=== PATIENT | female | born 1940 | race Caucasian/White ===

== ENCOUNTER 2018-05-31 10:14 | Inpatient (IN) | payer OTHER, SELFPAY ==
[2018-05-31] VITALS (7 sets, daily range): BP systolic 118–140; BP diastolic 65–68; PULSE 79–113; RESP 16–27; TEMP 36.6–38.8; O2SAT 91–97; BMI 20.9
[2018-05-31] MEDS: SODIUM CHLORIDE 0.9% 1,000 ML 1000 ML IV (10:00)
--- NOTE | 2018-05-31 10:23 | DI.RAD.S_ITS ---
PROCEDURE: XR CHEST 1V INDICATIONS: suspected sepsis TECHNIQUE: One view of the chest was acquired. COMPARISON: None. FINDINGS: Surgical changes and devices: None. Lungs and pleura: There is blunting of left costophrenic angle suggestive of trace pleural effusion/thickening. Minimal left basilar atelectasis is also seen. No focal infiltrate or gross pneumothorax. Chronic emphysematous changes are seen. Mediastinum: Mediastinal contours appear normal. Heart size is enlarged. Bones and chest wall: No suspicious bony lesions. Overlying soft tissues appear unremarkable. IMPRESSION: Minimal left pleural effusion versus thickening. Left basilar atelectasis. No focal infiltrate or gross pneumothorax. Dictated by: Pascual Lay M.D. on 05/31/2018 at 10:51 Approved by: Pascual Lay M.D. on 05/31/2018 at 10:54
--- NOTE | 2018-05-31 10:30 | ED_ITS ---
HPI - Fever General Chief Complaint: Fever Stated Complaint: Fever, not eating Time Seen by Provider: 05/31/18 10:19 Source: family Mode of arrival: EMS Limitations: altered mental status History of Present Illness HPI Narrative: patient is a 77-year-old female with a history of dementia. She does come with a PLOST indicates that she is a DNR and antibiotics under limited circumstances. She is with her sister and also her dental laboratory technician apprentice. The patient does live had a care facility. The dental laboratory technician apprentice states that over the past several days the patient has become more altered. She did state that she had a fever at the end of last week. They also noticed that she was cheeking her food. They noticed over the past day or so that she has had a swelling in the right side of her neck. Has not been eating all that well. Both the dental laboratory technician apprentice and the sister think that she is at baseline mental status. Related Data Home Medications Medication Instructions Recorded Confirmed atorvastatin 10 mg tablet 10 mg PO BEDTIME 01/20/18 05/31/18 escitalopram 10 mg tablet 10 mg PO DAILY 01/20/18 05/31/18 quetiapine 25 mg tablet 6.25 - 12.5 mg PO BID PRN 01/20/18 05/31/18 triamcinolone acetonide 1 applic TOPICAL BID 05/31/18 05/31/18 Allergies Allergy/AdvReac Type Severity Reaction Status Date / Time erythromycin base Allergy hives Verified 01/20/18 10:56 Penicillins Allergy Hives Verified 01/20/18 10:56 Sulfa (Sulfonamide Allergy hives Verified 01/20/18 10:56 Antibiotics) Review of Systems Review of Systems Review of systems that was provided was from dental laboratory technician apprentice. unobtainable due to mental status Constitutional Reports fever(s) Gastrointestinal Gastrointestinal: Denies change in bowel habits and Denies vomiting Integumentary/Breasts Denies lesions and Denies rash Neurologic Comments: At baseline mental status [facility] Medical History Alzheimer's dementia (Acute) Surgical History No pertinent past surgical history (Acute) S/P appendectomy (Resolved) S/P cholecystectomy (Resolved) S/P ectopic (Resolved) S/P total hysterectomy (Resolved) Social History Smoking Status: Never smoker Exam Initial Vital Signs Initial Vital Signs: Vital Signs Temperature 97.8 F 05/31/18 10:24 Pulse Rate 113 H 05/31/18 10:24 Respiratory Rate 27 H 05/31/18 10:24 Blood Pressure 132/68 05/31/18 10:24 Pulse Oximetry 95 05/31/18 10:24 Const General: ill appearing Nutritional Appearance: cachectic Orientation: not alert and not oriented x3 HENMT Head: normal to inspection and normocephalic Mouth: No moist mucous membranes and malodorous breath Neck Other: patient with a large right-sided submandibular anterior cervical fullness. Not freely movable. No overlying skin changes. Resp Effort & Inspection: normal respiratory effort Auscultation: clear to auscultation bilaterally Cardio Rate: tachycardic Rhythm: regular rhythm GI Inspection: non-distended Palpation: soft Skin Lesions: no lesions Rashes: no rashes Neuro Other: Not responsive to commands. Did move all 4 extremities however not to command. Extrem General: normal to inspection and capillary refill normal Psych Appearance: disheveled Course Orders Ordered: ED Orders 05/31/18 10:23 XR chest 1V Stat 05/31/18 10:25 Complete Blood Count AUTO DIFF Stat Comprehensive Metabolic Panel Stat Lactate (Lactic Acid) Stat Lipase Stat Partial Thromboplastin Time Stat Procalcitonin Stat Prothrombin Time INR Stat 05/31/18 10:30 Blood Culture Stat 05/31/18 11:58 CT soft tissue neck w con Stat 05/31/18 13:15 Urinalysis and Microscopic Stat 05/31/18 13:46 Consult to Hospice Referral Routine 05/31/18 14:23 Education, smoking cessation ONGOING 05/31/18 14:49 MRSA PCR Stat Lorazepam (Ativan) 0.5 mg IV Q2HR PRN PRN Reason: Anxiety Discontinued Medications Acetaminophen (Tylenol) 650 mg [place] NOW ONE Stop: 05/31/18 10:55 Last Admin: 05/31/18 10:58 Dose: 650 mg Sodium Chloride (Normal Saline 0.9%) 1,000 mls @ 1,000 mls/hr IV BOLUS ONE Stop: 05/31/18 11:22 Last Infusion: 05/31/18 11:00 Dose: 0 mls/hr Admin: 05/31/18 10:00 Dose: 1,000 mls/hr Sodium Chloride (Normal Saline 0.9%) 2,100 mls @ 700 mls/hr 30 ml/kg infuse over 3 hr (2100 ml) IV CONT WILLIAM Last Infusion: 05/31/18 13:42 Dose: 0 mls/hr Admin: 05/31/18 10:59 Dose: 700 mls/hr Vancomycin HCl/Dextrose (Vancomycin) 1,000 mg in 200 mls @ 200 mls/hr IV NOW ONE Stop: 05/31/18 11:53 Last Infusion: 05/31/18 13:10 Dose: 0 mls/hr Admin: 05/31/18 12:07 Dose: 200 mls/hr Ceftriaxone Sodium/Dextrose (Rocephin) 1 gm in 50 mls @ 100 mls/hr IV NOW ONE Stop: 05/31/18 11:26 Last Infusion: 05/31/18 11:32 Dose: 0 mls/hr Admin: 05/31/18 11:05 Dose: 100 mls/hr Vital Signs - 8 hr 05/31/18 10:24 05/31/18 10:58 05/31/18 11:26 Temperature 97.8 F 102 F H 100.1 F H Pulse Rate 113 H Respiratory Rate 27 H Blood Pressure 132/68 Pulse Oximetry 95 05/31/18 11:32 05/31/18 14:09 Temperature 100 F H 98.4 F Pulse Rate 84 Respiratory Rate 16 Blood Pressure 140/65 Pulse Oximetry 91 MDM - Fever Lab Data Attestation: I reviewed the patient's lab results. Result diagrams: 05/31/18 10:25 05/31/18 10:25 Lab Results 05/31/18 05/31/18 05/31/18 Range/Units 10:25 10:25 10:25 WBC 19.7 H (4.5-11.0) X10^3/uL RBC 5.25 H (4.0-5.2) X10^6/uL Hgb 14.4 (12.0-16.0) g/dL Hct 43.9 (36-46) % MCV 83.6 (80-100) fL MCH 27.4 (26-34) PG MCHC 32.8 (30-36) % RDW 14.6 (11.6-14.8) % Plt Count 236 (150-400) X10^3/uL Neut % (Auto) 83.7 H (50-75) % Lymph % (Auto) 7.0 L (25-40) % [place] % (Auto) 9.0 (3-14) % Eos % (Auto) 0.0 L (2-4) % Baso % (Auto) 0.3 (0-2) % Neut # (Auto) 10485 H (3024-1841) /uL PT 13.3 H (10.1-12.7) SECONDS INR 1.2 (0.9-1.3) APTT 23 L (26.4-36.2) SECONDS Sodium (137-145) mmol/L Potassium (3.4-5.1) mmol/L Chloride (98-107) mmol/L Carbon Dioxide (22-32) mmol/L BUN (7-17) mg/dL Creatinine (0.52-1.04) mg/dL Estimated GFR (>60) mL/min BUN/Creatinine Ratio (6-22) Glucose (80-110) mg/dL Lactate (0.7-2.1) mmol/L Calcium (8.4-10.2) mg/dL Total Bilirubin (0.2-1.3) mg/dL AST (14-36) IU/L ALT (9-52) IU/L Alkaline Phosphatase (38-126) U/L Total Protein (6.3-8.2) g/dL Albumin (3.5-5.0) g/dL Globulin (1.7-4.1) g/dL Albumin/Globulin Ratio (1.0-2.8) Lipase (23-300) U/L Procalcitonin 1.73 H (<0.5) ng/mL Urine Color Urine Appearance Urine pH Ur Specific [place] Urine Protein Urine Glucose (UA) Urine Ketones Urine Occult Blood Urine Nitrate Urine Bilirubin Urine Urobilinogen Ur Leukocyte Esterase Urine RBC (0-5/HPF) Urine WBC (0-5/HPF) Ur Squamous Epith Cells Triple Phos Crystals Amorphous Sediment Urine Bacteria (None) Ur Culture Indicated? Micro UA Comment 05/31/18 05/31/18 05/31/18 Range/Units 10:25 10:25 13:15 WBC (4.5-11.0) X10^3/uL RBC (4.0-5.2) X10^6/uL Hgb (12.0-16.0) g/dL Hct (36-46) % MCV (80-100) fL MCH (26-34) PG MCHC (30-36) % RDW (11.6-14.8) % Plt Count (150-400) X10^3/uL Neut % (Auto) (50-75) % Lymph % (Auto) (25-40) % [place] % (Auto) (3-14) % Eos % (Auto) (2-4) % Baso % (Auto) (0-2) % Neut # (Auto) (9671-5425) /uL PT (10.1-12.7) SECONDS INR (0.9-1.3) APTT (26.4-36.2) SECONDS Sodium 160 H* (137-145) mmol/L Potassium 3.9 (3.4-5.1) mmol/L Chloride 123 H* (98-107) mmol/L Carbon Dioxide 24 (22-32) mmol/L BUN 36 H (7-17) mg/dL Creatinine 1.10 H (0.52-1.04) mg/dL Estimated GFR 47.9 L (>60) mL/min BUN/Creatinine Ratio 32.7 H (6-22) Glucose 138 H (80-110) mg/dL Lactate 1.2 (0.7-2.1) mmol/L Calcium 7.9 L (8.4-10.2) mg/dL Total Bilirubin 0.8 (0.2-1.3) mg/dL AST 65 H (14-36) IU/L ALT 33 (9-52) IU/L Alkaline Phosphatase 100 (38-126) U/L Total Protein 5.8 L (6.3-8.2) g/dL Albumin 2.9 L (3.5-5.0) g/dL Globulin 2.9 (1.7-4.1) g/dL Albumin/Globulin Ratio 1.0 (1.0-2.8) Lipase 234 (23-300) U/L Procalcitonin (<0.5) ng/mL Urine Color Brown Urine Appearance Turbid Urine pH QNS Ur Specific [place] QNS Urine Protein QNS Urine Glucose (UA) QNS Urine Ketones QNS Urine Occult Blood QNS Urine Nitrate QNS Urine Bilirubin QNS Urine Urobilinogen QNS Ur Leukocyte Esterase QNS Urine RBC None seen (0-5/HPF) Urine WBC 5-10/hpf H (0-5/HPF) Ur Squamous Epith Cells >30 /hpf H Triple Phos Crystals Moderate Amorphous Sediment 3+ Urine Bacteria None seen (None) Ur Culture Indicated? Cult not indicated Micro UA Comment Not Reportable Imaging Data Chest x-ray: Radiologist's impression: [address] [address] XRay Report Signed Patient: Kayley Keene#: [id number] : 8Acct:[id number] Age/Sex: 77 / FDate of Service: 05/31/18 Loc: ED Accession Number: [id number] Procedure: XR chest 1V Ordering Provider: Maurizio Hi D.O. PROCEDURE: XR CHEST 1V INDICATIONS: suspected sepsis TECHNIQUE: One view of the chest was acquired. COMPARISON: None. FINDINGS: Surgical changes and devices: None. Lungs and pleura: There is blunting of left costophrenic angle suggestive of trace pleural effusion/thickening. Minimal left basilar atelectasis is also seen. No focal infiltrate or gross pneumothorax. Chronic emphysematous changes are seen. Mediastinum: Mediastinal contours appear normal. Heart size is enlarged. Bones and chest wall: No suspicious bony lesions. Overlying soft tissues appear unremarkable. IMPRESSION: Minimal left pleural effusion versus thickening. Left basilar atelectasis. No focal infiltrate or gross pneumothorax. Dictated by: Pascual Lay M.D. on 05/31/2018 at 10:51 Approved by: Pascual Lay M.D. on 05/31/2018 at 10:54 CT neck: Radiologist's impression: ROCEDURE: CT SOFT TISSUE NECK W CON INDICATIONS: Right sided swelling and sepsis TECHNIQUE: After the administration of intravenous contrast, 3.0 mm axial sections acquired from the sella to the aortic arch. Additional oblique axial 3.0 mm sections acquired through the pharynx. 3 mm thick coronal and sagittal reformats were generated. For radiation dose reduction, the following was used: automated exposure control. COMPARISON: [facility], CLAUDINE, XR CHEST 1V, 05/31/2018, 10:36. FINDINGS: Image quality: Excellent. Lymph nodes: No enlarged lymph nodes seen throughout the neck. Vessels: Visualized vasculature appears patent. Neck spaces: The oropharynx, nasopharynx, and pharynx demonstrate no mucosal lesions. The vocal cords, false vocal cords, pyriform sinuses, epiglottis, vallecula, and tongue base all appear normal. Glands: There is abnormal swelling and hyperenhancement of the right submandibular gland. There is surrounding inflammatory change, with subcutaneous fat stranding and thickening of the right platysma muscle. The left submandibular gland demonstrates no significant abnormality. The parotid glands are largely fatty replaced, yet appear symmetric. Thyroid gland demonstrates no significant CT abnormality. Miscellaneous: Visualized brain and orbits appear normal. Lung apices appear clear. Superficial soft tissues appear normal. Bones: No suspicious bony lesions. Visualized sinuses and mastoids appear unremarkable. Mild bony degenerative changes are seen. IMPRESSION: Right neck inflammatory change is seen, which is centered at the right submandibular gland. Please correlate with potential causes of inflammation this salivary gland. Dictated by: Brigido Giraldo M.D. on 05/31/2018 at 11:08 Approved by: Brigido Giraldo M.D. on 05/31/2018 at 11:11 [facility] Narrative Medical decision making narrative: patient is a DNR however does accept antibiotics. Given her fever, elevated white blood cell count, and clinical condition I do have concern for a sepsis picture. She was given vancomycin Rocephin here in the emergency department. She was given 30 cc/kilogram of fluids. Clinically she was very dehydrated this does fit the hypernatremia. No drainable abscess seen in the right side of the neck. I discussed the case with Dr. Watkins who is on-call for the patient's primary care doctor who accepts the patient for admission. I discussed the admission with the dental laboratory technician apprentice and the sister who at bedside. They both expressed understanding and agreement. Discharge Plan Departure Patient Disposition: Admitted As Inpatient Clinical Impression: Fever of unknown origin, Sepsis Discharge Date/Time: 05/31/18 13:47 Interventions: ED Discharge Assessment Last Done: 05/31/18 13:46 Admit Date/Time: 05/31/18 13:21 Admit Provider: Isai Watkins
[2018-05-31 10:39] LABS: Add Manual Diff / Slide Review NO; Basophils Percent Auto 0.3 % (0-2); Hematocrit 43.9 % (36-46); Hemoglobin 14.4 g/dL (12.0-16.0); Mean Corpuscular HGB Conc 32.8 % (30-36); Mean Corpuscular Hemoglobin 27.4 PG (26-34); Mean Corpuscular Volume 83.6 fL (80-100); Neutrophils Absolute Auto 16500 /uL (3000-5900); Neutrophils Percent Auto 83.7 % (50-75); Platelet Count 236 X10^3/uL (150-400); Red Blood Cell Count 5.25 X10^6/uL (4.0-5.2); Red Cell Distribution Width 14.6 % (11.6-14.8); White Blood Cell Count 19.7 X10^3/uL (4.5-11.0)
[2018-05-31 10:46] LABS: INR 1.2 (0.9-1.3); Prothrombin Time 13.3 SECONDS (10.1-12.7)
[2018-05-31 10:49] LABS: PTT Partial Thromboplastin Tim 23 SECONDS (26.4-36.2)
[2018-05-31 10:51] LABS: Alanine Aminotransferase 33 IU/L (9-52); Albumin 2.9 g/dL (3.5-5.0); Alkaline Phosphatase 100 U/L (38-126); Aspartate Aminotransferase 65 IU/L (14-36); BUN Creatinine Ratio 32.7 (6-22); Bilirubin Total 0.8 mg/dL (0.2-1.3); Blood Urea Nitrogen 36 mg/dL (7-17); Calcium 7.9 mg/dL (8.4-10.2); Carbon Dioxide 24 mmol/L (22-32); Estimated Glomerular Filt Rate 47.9 mL/min (>60); Globulin 2.9 g/dL (1.7-4.1); Glucose 138 mg/dL (80-110); HEMOLYSIS < 15 (0-50); Lipase 234 U/L (23-300); Potassium 3.9 mmol/L (3.4-5.1); Total Protein 5.8 g/dL (6.3-8.2)
[2018-05-31 10:52] LABS: Lactate (Lactic Acid) 1.2 mmol/L (0.7-2.1)
[2018-05-31] MEDS: ACETAMINOPHEN 650 MG SUPP PR (10:58)
[2018-05-31] MEDS: SODIUM CHLORIDE 0.9% 2,100 ML 700 ML IV (10:59)
[2018-05-31 11:00] LABS: Sodium 160 mmol/L (137-145)
[2018-05-31 11:01] LABS: Chloride 123 mmol/L (98-107)
[2018-05-31] MEDS: CEFTRIAXONE 1 GM/50 ML FROZ.PIGGY IV (11:05)
[2018-05-31 11:07] LABS: Procalcitonin 1.73 ng/mL (<0.5)
--- NOTE | 2018-05-31 11:58 | DI.CT.S_ITS ---
PROCEDURE: CT SOFT TISSUE NECK W CON INDICATIONS: Right sided swelling and sepsis TECHNIQUE: After the administration of intravenous contrast, 3.0 mm axial sections acquired from the sella to the aortic arch. Additional oblique axial 3.0 mm sections acquired through the pharynx. 3 mm thick coronal and sagittal reformats were generated. For radiation dose reduction, the following was used: automated exposure control. COMPARISON: [facility], CR, XR CHEST 1V, 05/31/2018, 10:36. FINDINGS: Image quality: Excellent. Lymph nodes: No enlarged lymph nodes seen throughout the neck. Vessels: Visualized vasculature appears patent. Neck spaces: The oropharynx, nasopharynx, and pharynx demonstrate no mucosal lesions. The vocal cords, false vocal cords, pyriform sinuses, epiglottis, vallecula, and tongue base all appear normal. Glands: There is abnormal swelling and hyperenhancement of the right submandibular gland. There is surrounding inflammatory change, with subcutaneous fat stranding and thickening of the right platysma muscle. The left submandibular gland demonstrates no significant abnormality. The parotid glands are largely fatty replaced, yet appear symmetric. Thyroid gland demonstrates no significant CT abnormality. Miscellaneous: Visualized brain and orbits appear normal. Lung apices appear clear. Superficial soft tissues appear normal. Bones: No suspicious bony lesions. Visualized sinuses and mastoids appear unremarkable. Mild bony degenerative changes are seen. IMPRESSION: Right neck inflammatory change is seen, which is centered at the right submandibular gland. Please correlate with potential causes of inflammation this salivary gland. Dictated by: Brigido Giraldo M.D. on 05/31/2018 at 11:08 Approved by: Brigido Giraldo M.D. on 05/31/2018 at 11:11
[2018-05-31] MEDS: VANCOMYCIN 1,000 MG/200 ML FROZ.PIGGY 200 MG IV (12:07)
[2018-05-31 13:17] LABS: Bacteria Urine None Seen; RBC Urine None Seen (0-5/HPF)
--- NOTE | 2018-05-31 13:17 | PC.NURSE ---
DR Juarez at bedside. Discussing Plan/goals for admission.
--- NOTE | 2018-05-31 13:22 | PC.NURSE ---
Per DR Juarez, comfort care only.
[2018-05-31 13:33] LABS: Appearance Urine UA TURBID; Bilirubin Urine UA QNS (NEGATIVE); Color Urine UA BROWN; Glucose Urine UA QNS g/dL (Normal); Ketones Urine UA QNS (NEGATIVE); Leukocyte Esterase Urine UA QNS (NEGATIVE); Nitrite Urine UA QNS (Negative); Occult Blood Urine UA QNS (Negative); Protein Urine UA QNS (Negative); Specific Gravity Urine UA QNS (1.000-1.035); Urobilinogen Urine UA QNS E.U./dL (0.2); pH Urine UA QNS (4.5-8.0)
[2018-05-31 13:34] LABS: Amorphous Sediment Urine 3+; Culture Indicated Urine Cult Not Indicated; Squamous Epithelial Cell Urine >30 /HPF; Triple Phosphate Crystal Urine Moderate; WBC Urine 5-10/HPF (0-5/HPF)
--- NOTE | 2018-05-31 13:38 | PM.HP.1 ---
History of Present Illness Date Patient Seen: 05/31/18 Time Patient Seen: 13:39 Chief complaint: Fever, not eating Narrative: Patient unable to give history. She is a 77-year-old demented female who apparently has been on progressively worsening over the last [address] Brenton Madden 5 in December. Apparently was having difficulty with her dementia and some issues with cyst in her vagina. Apparently that is been stable but history now is gotten from sister and maintenance controller. Parrot shunt apparently has been increasingly having difficulty with fever swelling in her neck and seemingly increasingly agitated and uncomfortable. She has been not taking p.o.. Not having much urine output no diarrhea. No abdominal pain. She has had no cough or other change. She has not been swallowing as well over the last 48 hr. Patient usually could feed herself but does not because she eats things he is not supposed to. Therefore is assisted. She has not been eating much over the last 48 hr. Sister and maintenance controller feel as if she has any increasing pain. Unsure where it is. She is non continued to give. Otherwise there has been no significant change except for swelling in her right neck that is been going on over the last 48 hr. She otherwise has not had any significant definitive diagnosis for her dementia. There has been a lot of rigidity and there has been some question on possible Parkinson's but has not been given a diagnosis here. She was supposed to see a neurologist but has not been set up. Past medical history severe dementia anemia Arthritis bladder infections history of depression diverticulosis hyperlipidemia migraine headaches and history of pneumonia. 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 had dementia early onset. Family history father some type of bladder cancer or dysfunction, depression Mother breast cancer CHF stroke hypertension, diabetes, hypertension Siblings breast cancer, asthma, depression, type 2 diabetes, hypertension osteoporosis thyroid cancer in sister Patient History Surgical History S/P appendectomy (Resolved) S/P cholecystectomy (Resolved) S/P ectopic (Resolved) S/P total hysterectomy (Resolved) Family & Social History Family History: Reviewed 05/31/18 by Isai Watkins MD Safety & Behavioral: Feels Safe in Current Yes Environment Tobacco & Substance use: Smoking Status Never smoker Substance Use Type does not use Meds Home Medications Medication Instructions Recorded Confirmed Type atorvastatin 10 mg tablet 10 mg PO BEDTIME 01/20/18 05/31/18 History escitalopram 10 mg tablet 10 mg PO DAILY 01/20/18 05/31/18 History quetiapine 25 mg tablet 6.25 - 12.5 mg PO BID PRN 01/20/18 05/31/18 History triamcinolone acetonide 1 applic TOPICAL BID 05/31/18 05/31/18 History Allergies Allergy/AdvReac Type Severity Reaction Status Date / Time erythromycin base Allergy hives Verified 01/20/18 10:56 Penicillins Allergy Hives Verified 01/20/18 10:56 Sulfa (Sulfonamide Allergy hives Verified 01/20/18 10:56 Antibiotics) Review of Systems Review of Systems All systems reviewed & are unremarkable except as noted in HPI and below Exam Vital Signs (past 8 hours): - 05/31/18 10:24 05/31/18 10:58 05/31/18 11:26 Temperature 97.8 F 102 F H 100.1 F H Pulse Rate 113 H Respiratory Rate 27 H Blood Pressure 132/68 Pulse Oximetry 95 05/31/18 11:32 Temperature 100 F H Pulse Rate Respiratory Rate Blood Pressure Pulse Oximetry Oxygen Delivery Method Nasal Cannula Oxygen Flow Rate 2 Narrative Exam Narrative: Alert female in no acute distress. Lying quietly. HEENT exam TMs are normal conjunctiva clear I do not see any oral lesions but difficult to get her mouth fully open. Her right neck is swollen and firm. I do not feel any definitive fluctuance or other change. No supraclavicular adenopathy. Lungs with diffuse rhonchi. Heart regular rate and rhythm. Abdomen is soft positive bowel sounds nontender. Extremities without cyanosis clubbing edema. Neurologic exam she is stiff nonresponsive except to deep pain. Objective Labs Result Diagrams: 05/31/18 10:25 05/31/18 10:25 Labs: Laboratory Results - last 24 hr 05/31/18 05/31/18 05/31/18 10:25 10:25 10:25 WBC 19.7 H RBC 5.25 H Hgb 14.4 Hct 43.9 MCV 83.6 MCH 27.4 MCHC 32.8 RDW 14.6 Plt Count 236 Neut % (Auto) 83.7 H Lymph % (Auto) 7.0 L [place] % (Auto) 9.0 Eos % (Auto) 0.0 L Baso % (Auto) 0.3 Neut # (Auto) 82831 H PT 13.3 H INR 1.2 APTT 23 L Sodium Potassium Chloride Carbon Dioxide BUN Creatinine Estimated GFR BUN/Creatinine Ratio Glucose Lactate Calcium Total Bilirubin AST ALT Alkaline Phosphatase Total Protein Albumin Globulin Albumin/Globulin Ratio Lipase Procalcitonin 1.73 H Urine Color Urine Appearance Urine pH Ur Specific [place] Urine Protein Urine Glucose (UA) Urine Ketones Urine Occult Blood Urine Nitrate Urine Bilirubin Urine Urobilinogen Ur Leukocyte Esterase Urine RBC Urine WBC Ur Squamous Epith Cells Triple Phos Crystals Amorphous Sediment Urine Bacteria Ur Culture Indicated? Micro UA Comment 05/31/18 05/31/18 05/31/18 10:25 10:25 13:15 WBC RBC Hgb Hct MCV MCH MCHC RDW Plt Count Neut % (Auto) Lymph % (Auto) [place] % (Auto) Eos % (Auto) Baso % (Auto) Neut # (Auto) PT INR APTT Sodium 160 H* Potassium 3.9 Chloride 123 H* Carbon Dioxide 24 BUN 36 H Creatinine 1.10 H Estimated GFR 47.9 L BUN/Creatinine Ratio 32.7 H Glucose 138 H Lactate 1.2 Calcium 7.9 L Total Bilirubin 0.8 AST 65 H ALT 33 Alkaline Phosphatase 100 Total Protein 5.8 L Albumin 2.9 L Globulin 2.9 Albumin/Globulin Ratio 1.0 Lipase 234 Procalcitonin Urine Color Brown Urine Appearance Turbid Urine pH QNS Ur Specific [place] QNS Urine Protein QNS Urine Glucose (UA) QNS Urine Ketones QNS Urine Occult Blood QNS Urine Nitrate QNS Urine Bilirubin QNS Urine Urobilinogen QNS Ur Leukocyte Esterase QNS Urine RBC None seen Urine WBC 5-10/hpf H Ur Squamous Epith Cells >30 /hpf H Triple Phos Crystals Moderate Amorphous Sediment 3+ Urine Bacteria None seen Ur Culture Indicated? Cult not indicated Micro UA Comment Not Reportable Assessment & Plan Plan: Assessment/Plan Narrative: 77-year-old female with clear infection probably in the upper neck with increasing pain activity and terminal dementia. Long discussion with sister. Comfort care is goal. We will see if we can get her comfortable with morphine and Ativan and will consult hospice. Discussed with social service. Will not give IV fluids or other antibiotics at this time. Sister sure this is what her desires would be and at this point will work towards pain control once we have that can work towards getting her home. Sister understands questions answered.
--- NOTE | 2018-05-31 21:32 | PC.NURSE ---
Addendum entered by Savita Sidhu R.N. 05/31/18 21:35: Right neck is firm and swollen. Pt grimaced when area palpated. Morphine [employer] MECH[employer]IC started per Dr. Watkins's orders. Original Note: keaton note Pt resists having limbs moved. Arms are folded across abd with elbows against her sides. Left leg is contracted at the knee. Right leg is rigid, fully extended, with foot drop. Lips are dry. balm applied. Pt would not open mouth for inspection. Pt opens eyes when she is turned.
[2018-05-31] MEDS: SODIUM CHLORIDE 0.9% 500 ML 21 ML IV (22:56)
[2018-06-01 03:10] VITALS: BP 120/55; PULSE 88; RESP 15; TEMP 37.1; O2SAT 92
[2018-06-01 04:10] LABS: Enterococcus species Not Detected (Not Detect); Listeria monocytogenes Not Detected (Not Detect); Methicillin-resistant gene Detected (Not Detect); Staphylococcus species Detected (Not Detect)
[2018-06-01 04:11] LABS: Acinetobacter baumannii Not Detected (Not Detect); Candida albicans Not Detected (Not Detect); Candida glabrata Not Detected (Not Detect); Candida krusei Not Detected (Not Detect); Candida parapsilosis Not Detected (Not Detect); Candida tropicalis Not Detected (Not Detect); E. coli Not Detected (Not Detect); Enterobacter cloacae complex Not Detected (Not Detect); Enterobacteriaceae species Not Detected (Not Detect); Haemophilus influenzae Not Detected (Not Detect); Neisseria meningitidis Not Detected (Not Detect); Proteus species Not Detected (Not Detect); Pseudomonas aeruginosa Not Detected (Not Detect); Serratia marcescens Not Detected (Not Detect); Streptococcus agalactiae (Gr B Not Detected (Not Detect); Streptococcus pneumonia Not Detected (Not Detect); Streptococcus pyogenes (Gr A) Not Detected (Not Detect); Streptococcus species Not Detected (Not Detect)
[2018-06-01] MEDS: MORPHINE PCA 30 MG/30 ML PCA.VIAL IV ×2 (05:51→05:53)
[2018-06-01 07:29] VITALS: BP 107/60; PULSE 76; RESP 18; TEMP 37.4; O2SAT 94
--- NOTE | 2018-06-01 09:08 | PM.PN.1 ---
Subjective Date Patient Seen: 06/01/18 Time Patient Seen: 09:08 Interval history: remains unresponsive except eye opening at voice Exam Vital Signs (past 8 hours): - 06/01/18 03:10 06/01/18 07:29 Temperature 98.8 F 99.3 F Pulse Rate 88 76 Respiratory Rate 15 18 Blood Pressure 120/55 L 107/60 Pulse Oximetry 92 94 Oxygen Delivery Method Room Air Oxygen Flow Rate 2 Narrative Exam Narrative: lying quietly, NAD CTA, RRR, Abd soft, Objective Labs Result Diagrams: 05/31/18 10:25 05/31/18 10:25 Labs: Laboratory Results - last 24 hr 05/31/18 05/31/18 05/31/18 10:25 10:25 10:25 WBC 19.7 H RBC 5.25 H Hgb 14.4 Hct 43.9 MCV 83.6 MCH 27.4 MCHC 32.8 RDW 14.6 Plt Count 236 Neut % (Auto) 83.7 H Lymph % (Auto) 7.0 L [place] % (Auto) 9.0 Eos % (Auto) 0.0 L Baso % (Auto) 0.3 Neut # (Auto) 18376 H PT 13.3 H INR 1.2 APTT 23 L Sodium Potassium Chloride Carbon Dioxide BUN Creatinine Estimated GFR BUN/Creatinine Ratio Glucose Lactate Calcium Total Bilirubin AST ALT Alkaline Phosphatase Total Protein Albumin Globulin Albumin/Globulin Ratio Lipase Procalcitonin 1.73 H Urine Color Urine Appearance Urine pH Ur Specific [place] Urine Protein Urine Glucose (UA) Urine Ketones Urine Occult Blood Urine Nitrate Urine Bilirubin Urine Urobilinogen Ur Leukocyte Esterase Urine RBC Urine WBC Ur Squamous Epith Cells Triple Phos Crystals Amorphous Sediment Urine Bacteria Ur Culture Indicated? Micro UA Comment Nasal Screen MRSA (PCR) A. baumannii (PCR) Dana albicans (PCR) C. glabrata (PCR) C. krusei (PCR) C. parapsilosis (PCR) C. tropicalis (PCR) Enterobacteriac sp PCR E. cloacae complex PCR Enterococcus sp PCR E. coli (PCR) H. influenzae (PCR) Klebsiella oxytoca PCR Klebsiella pneumoniae List. monocytogenes PCR N. meningitidis (PCR) Proteus species (PCR) Serratia marcescens PCR Staphylococcus sp PCR Staph aureus (PCR) mecA-Methicil Res Gene Streptococcus sp PCR Group A Strep (PCR) Strep agalactiae (PCR) Strep pneumoniae (PCR) P. aeruginosa (PCR) Gio/B-Vanco Res Genes KPC-Carbap Res Gene PCR 05/31/18 05/31/18 05/31/18 10:25 10:25 10:25 WBC RBC Hgb Hct MCV MCH MCHC RDW Plt Count Neut % (Auto) Lymph % (Auto) [place] % (Auto) Eos % (Auto) Baso % (Auto) Neut # (Auto) PT INR APTT Sodium 160 H* Potassium 3.9 Chloride 123 H* Carbon Dioxide 24 BUN 36 H Creatinine 1.10 H Estimated GFR 47.9 L BUN/Creatinine Ratio 32.7 H Glucose 138 H Lactate 1.2 Calcium 7.9 L Total Bilirubin 0.8 AST 65 H ALT 33 Alkaline Phosphatase 100 Total Protein 5.8 L Albumin 2.9 L Globulin 2.9 Albumin/Globulin Ratio 1.0 Lipase 234 Procalcitonin Urine Color Urine Appearance Urine pH Ur Specific [place] Urine Protein Urine Glucose (UA) Urine Ketones Urine Occult Blood Urine Nitrate Urine Bilirubin Urine Urobilinogen Ur Leukocyte Esterase Urine RBC Urine WBC Ur Squamous Epith Cells Triple Phos Crystals Amorphous Sediment Urine Bacteria Ur Culture Indicated? Micro UA Comment Nasal Screen MRSA (PCR) A. baumannii (PCR) Not detected [place] albicans (PCR) Not detected C. glabrata (PCR) Not detected C. krusei (PCR) Not detected C. parapsilosis (PCR) Not detected C. tropicalis (PCR) Not detected Enterobacteriac sp PCR Not detected E. cloacae complex PCR Not detected Enterococcus sp PCR Not detected E. coli (PCR) Not detected H. influenzae (PCR) Not detected Klebsiella oxytoca PCR Not detected Klebsiella pneumoniae Not detected List. monocytogenes PCR Not detected N. meningitidis (PCR) Not detected Proteus species (PCR) Not detected Serratia marcescens PCR Not detected Staphylococcus sp PCR Detected H Staph aureus (PCR) Detected H mecA-Methicil Res Gene Detected H Streptococcus sp PCR Not detected Group A Strep (PCR) Not detected Strep agalactiae (PCR) Not detected Strep pneumoniae (PCR) Not detected P. aeruginosa (PCR) Not detected Gio/B-Vanco Res Genes Not Reportable KPC-Carbap Res Gene PCR Not Reportable 05/31/18 05/31/18 13:15 14:30 WBC RBC Hgb Hct MCV MCH MCHC RDW Plt Count Neut % (Auto) Lymph % (Auto) [place] % (Auto) Eos % (Auto) Baso % (Auto) Neut # (Auto) PT INR APTT Sodium Potassium Chloride Carbon Dioxide BUN Creatinine Estimated GFR BUN/Creatinine Ratio Glucose Lactate Calcium Total Bilirubin AST ALT Alkaline Phosphatase Total Protein Albumin Globulin Albumin/Globulin Ratio Lipase Procalcitonin Urine Color Brown Urine Appearance Turbid Urine pH QNS Ur Specific [place] QNS Urine Protein QNS Urine Glucose (UA) QNS Urine Ketones QNS Urine Occult Blood QNS Urine Nitrate QNS Urine Bilirubin QNS Urine Urobilinogen QNS Ur Leukocyte Esterase QNS Urine RBC None seen Urine WBC 5-10/hpf H Ur Squamous Epith Cells >30 /hpf H Triple Phos Crystals Moderate Amorphous Sediment 3+ Urine Bacteria None seen Ur Culture Indicated? Cult not indicated Micro UA Comment Not Reportable Nasal Screen MRSA (PCR) Negative for mrsa A. baumannii (PCR) Dana albicans (PCR) C. glabrata (PCR) C. krusei (PCR) C. parapsilosis (PCR) C. tropicalis (PCR) Enterobacteriac sp PCR E. cloacae complex PCR Enterococcus sp PCR E. coli (PCR) H. influenzae (PCR) Klebsiella oxytoca PCR Klebsiella pneumoniae List. monocytogenes PCR N. meningitidis (PCR) Proteus species (PCR) Serratia marcescens PCR Staphylococcus sp PCR Staph aureus (PCR) mecA-Methicil Res Gene Streptococcus sp PCR Group A Strep (PCR) Strep agalactiae (PCR) Strep pneumoniae (PCR) P. aeruginosa (PCR) Gio/B-Vanco Res Genes KPC-Carbap Res Gene PCR Assessment & Plan (1) Terminal care: Problem details: Status unchanged, after consultation with family and caregivers and in light of [facility] instructions, remains on limited medical interventions, anticipating back to facility for hospice Current visit: Yes Status: Acute (2) Fever of unknown origin: Problem details: Pos blood cultures, no current tx inlight of above. Current visit: Yes Status: Acute (3) Sepsis: Problem details: As above Qualifiers: Sepsis type: sepsis due to unspecified organism Qualified Code(s): A41.9 - Sepsis, unspecified organism Current visit: Yes Status: Acute (4) Dementia: Problem details: Progressive Current visit: Yes Status: Acute Plan: Assessment/Plan Narrative: Change to comfort care, and work toward back to facility for hospice terminal care.
[2018-06-01] MEDS: LORazepam 2 MG/ML SYRINGE 0.5 MG IV ×2 (10:15→14:04)
[2018-06-01] MEDS: SCOPOLAMINE 1 PATCH TOP (11:17)
--- NOTE | 2018-06-01 12:59 | PC.NURSE ---
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
[2018-06-01] MEDS: MORPHINE 10 MG/0.5 ML ORAL SYRINGE PO ×2 (14:33→18:56)
[2018-06-01 16:00] VITALS: PULSE 113; RESP 8; TEMP 37.6; O2SAT 72
--- NOTE | 2018-06-01 19:44 | PC.NURSE ---
[place] note pt nonresponsive. O2 sats initially 68-72% on room air. After repositioning, Sats up to 83% but breathing pattern sounds more labored, rhonchorous. Gave one dose of liquid morphine.
[2018-06-02 00:57] VITALS: BP 108/38; PULSE 103; RESP 20; TEMP 37.9; O2SAT 82
[2018-06-02] MEDS: MORPHINE 10 MG/0.5 ML ORAL SYRINGE PO ×2 (01:04→05:43)
[2018-06-02] MEDS: SODIUM CHLORIDE 0.9% FLUSH 10 ML IV (05:54)
[2018-06-02] MEDS: LORazepam 2 MG/ML SYRINGE 0.5 MG IV (05:54)
--- NOTE | 2018-06-02 08:08 | PC.NURSE ---
pt became asystolic as well as apneic at 0728 - notified sister, Vianey and contacted [facility] in [place]
--- NOTE | 2018-06-02 08:56 | CM.DPC ---
DCP : Per RN, pt this morning around 0730 and family and home were contacted. SW spoke to [facility] and updated on the referral that was sent and pt's status. Plan: Patient this morning and arrangements already made and family aware. KEV Warner
--- NOTE | 2018-06-02 09:08 | PM.DS.1 ---
History of Present Illness Date Patient Seen: 06/02/18 Time Patient Seen: 09:08 Chief complaint: Fever, not eating Narrative: See H&P Discharge Providers Date of admission: 05/31/18 13:21 Consults: 05/31/18 13:46 Consult to Hospice Referral Routine Comment: Discharge provider: Nuno Wells MD Summary Discharge Diagnosis: 1. Pneumonia 2. Possible sepsis 3. End-stage dementia 4. Terminal care. Hospital Course: Patient was admitted after a brief and severe decline in health, evaluated found to have evidence of pneumonia and possible sepsis but was clearly very ill and given overall health status, it was suspected that she was unlikely to survive this episode. In consultation with family, DPO[facility], and caregivers, it was felt best to proceed with comfort care or limited medical interventions. All therapeutic measures were terminated and she was provided with pain and anxiety medications. She was uncommunicative on arrival that did not change except that she would not open eyes to voice but no other interaction, until late yesterday afternoon when she was not even opening eyes not responding in any way. Developed more agonal breathing late in the afternoon which continued through the night and early this morning found asystolic evaluation determined demise. Status at Discharge Cognitive/behavioral status at discharge: Time Spent with Patient Greater than 30 minutes Exam Vital Signs (past 8 hours): Oxygen Delivery Method Room Air Oxygen Flow Rate 2 Objective Labs Result Diagrams: 05/31/18 10:25 05/31/18 10:25 Discharge Plan Discharge Plan Discharge Problem: Fever of unknown origin, Sepsis Patient Disposition: Discharge Med Rec/Prescriptions Prescriptions: No Action quetiapine [Seroquel] 25 mg tablet 6.25 - 12.5 mg PO BID PRN (Reason: Agitation) RF: 0 atorvastatin [Lipitor] 10 mg tablet 10 mg PO BEDTIME RF: 0 escitalopram oxalate [Lexapro] 10 mg tablet 10 mg PO DAILY RF: 0 triamcinolone acetonide 0.1 % Cream 1 applic TOPICAL BID RF: 0 Discharge Data Attending Provider: Isai Watkins Admit Date/Time: 05/31/18 13:21
--- NOTE | 2018-06-02 09:14 | P.DS_ITS ---
History of Present Illness Date Patient Seen: 06/02/18 Time Patient Seen: 09:08 Chief complaint: Fever, not eating Narrative: See H&P Discharge Providers Date of admission: 05/31/18 13:21 Consults: 05/31/18 13:46 Consult to Hospice Referral Routine Comment: Discharge provider: Nuno Wells MD Summary Discharge Diagnosis: 1. Pneumonia 2. Possible sepsis 3. End-stage dementia 4. Terminal care. Hospital Course: Patient was admitted after a brief and severe decline in health , evaluated found to have evidence of pneumonia and possible sepsis but was clearly very ill and given overall health status, it was suspected that she was unlikely to survive this episode. In consultation with family, DPO[facility], and caregivers, it was felt best to proceed with comfort care or limited medical interventions. All therapeutic measures were terminated and she was provided with pain and anxiety medications. She was uncommunicative on arrival that did not change except that she would not open eyes to voice but no other interaction , until late yesterday afternoon when she was not even opening eyes not responding in any way. Developed more agonal breathing late in the afternoon which continued through the night and early this morning found asystolic evaluation determined demise. Status at Discharge Cognitive/behavioral status at discharge: Time Spent with Patient Greater than 30 minutes Exam Vital Signs (past 8 hours): Oxygen Delivery Method Room Air Oxygen Flow Rate 2 Objective Labs Result Diagrams: 05/31/18 10:25 05/31/18 10:25 Discharge Plan Discharge Plan Discharge Problem: Fever of unknown origin, Sepsis Patient Disposition: Discharge Med Rec/Prescriptions Prescriptions: No Action quetiapine [Seroquel] 25 mg tablet 6.25 - 12.5 mg PO BID PRN (Reason: Agitation) RF: 0 atorvastatin [Lipitor] 10 mg tablet 10 mg PO BEDTIME RF: 0 escitalopram oxalate [Lexapro] 10 mg tablet 10 mg PO DAILY RF: 0 triamcinolone acetonide 0.1 % Cream 1 applic TOPICAL BID RF: 0 Discharge Data Attending Provider: Isai Watkins Admit Date/Time: 05/31/18 13:21
== END 2018-06-02 07:30 | disposition expired | DRG 871 ==
LOC: ED 12:52 → AC 13:22 → ICU 14:01
PROVIDERS: Admitting Provider Family Medicine; Emergency Provider Emergency Medicine; Visit Provider Family Medicine
DX: A41.9 Sepsis, unspecified organism (principal); R40.2312 Coma scale, best motor response, none, at arrival to emergency department; J18.9 Pneumonia, unspecified organism; R40.2212 Coma scale, best verbal response, none, at arrival to emergency department; R40.20 Unspecified coma; E87.0 Hyperosmolality and hypernatremia; R65.20 Severe sepsis without septic shock; R40.2142 Coma scale, eyes open, spontaneous, at arrival to emergency department; E86.0 Dehydration; B99.8 Other infectious disease; F03.90 Unspecified dementia, unspecified severity, without behavioral disturbance, psychotic disturbance, mood disturbance, and anxiety; F32.9 Major depressive disorder, single episode, unspecified; E78.5 Hyperlipidemia, unspecified; Z51.5 Encounter for palliative care; Z66 Do not resuscitate
CPT/HCPCS: 36415; 70491; 71045; 80053; 81001; 83605; 83690; 84145; 85025; 85610; 85730; 87040; 87150; 87186; 87205; 87797; 96361; 96365; 96366; 99285; J2060; J3370; Q9967